=== PATIENT | female | born 1935 | race Asian ===

== ENCOUNTER → 2016-09-11 | Outpatient (CLI) | payer MEDICARE, OTHER ==
[~2016-09-11] MED LIST: AMLO-511 PO; ATOR10TA84 PO; CARV6.2534 PO; DOCU-119 PO
[2016-09-11 15:09] LABS: APPEARANCE,URINE CLEAR (CLEAR); GLUCOSE, URINE (UA) NEGATIVE (NEGATIVE); KETONES,URINE NEGATIVE (NEGATIVE); LEUKOCYTE ESTERASE ,URINE SMALL (NEGATIVE); OCCULT BLOOD,URINE NEGATIVE (NEGATIVE); PH,URINE 5.5 (5.0-8.0); PROTEIN,URINE NEGATIVE (NEGATIVE)
[2016-09-11 15:12] LABS: ADD UA MICROSCOPIC YES
[2016-09-11 15:24] LABS: HEMOGLOBIN 9.5 g/dL (12.0-16.0); RBC,URINE 0-2 /HPF (0-2)
[2016-09-11 15:25] LABS: RENAL EPITHELIAL CELLS,URINE Few /LPF (None Seen); SQUAMOUS EPITHELIAL CELL,UR Few /LPF (None Seen)
[2016-09-11 15:41] LABS: CALCIUM, TOTAL 8.6 mg/dL (8.8-10.5); CREATININE 2.7 mg/dL (0.60-1.30); POTASSIUM 4.5 mmol/L (3.5-5.1)
== END | disposition home or self-care (01) ==
LOC: LABPV 09:48
PROVIDERS: ATTEND Internal Medicine Nephrology
DX: I12.9 Hypertensive chronic kidney disease with stage 1 through stage 4 chronic kidney disease, or unspecified chronic kidney disease (principal); N18.4 Chronic kidney disease, stage 4 (severe); E78.5 Hyperlipidemia, unspecified; R80.9 Proteinuria, unspecified
CPT/HCPCS: 81050; 82306; 82575; 82607; 82728; 82746; 82784; 83540; 83550; 83970; 84100; 84155; 84156; 84165; 84166; 84300; 84466; 85014; 85018; 86334; 86335; 87086

== ENCOUNTER → 2016-11-16 | Outpatient (CLI) | payer MEDICARE, OTHER ==
[~2016-11-16] MED LIST changes: +ACET-2247 PO; +ALLO100T PO; +ASPI-1093 PO; +ASPI-556 PO; +BISA10S PR; +CLOT15C TP; +COLC0.6T69 PO; +DRON2.5C PO; +EPOE10I SQ; +FE PR; +HYDR-3965 PO; +ISOS10TA8 PO; +LEVO500 PO; +LORA0.5T2 IM; +LORA0.5T2 PO; +MEGE400O4 PO; +MIRT15 PO; +MOM30 PO; +MULT-248 PO; +MULT-68 PO; +NYST30CR9 TP; +OLME40 PO; +PANT40TA25 PO; +TELM1TAB4 PO; +TELM20 PO; +[UNRECOGNIZED DRUG - CODE]; +[UNRECOGNIZED DRUG - CODE] SQ
[2016-11-16 12:22] LABS: HEMATOCRIT 30.9 % (36-46); HEMOGLOBIN 10.2 g/dL (12.0-16.0)
[2016-11-16 12:38] LABS: ALBUMIN 3.5 g/dL (3.4-5.0); BILIRUBIN,TOTAL 0.3 mg/dL (0.1-1.0); CALCIUM, TOTAL 8.7 mg/dL (8.8-10.5); CHOL/HDL RATIO 3.4 (3.9-5.7); CREATININE 3.26 mg/dL (0.60-1.30); POTASSIUM 3.4 mmol/L (3.5-5.1); TOTAL PROTEIN, SERUM 7.7 g/dL (6.4-8.2)
== END | disposition home or self-care (01) ==
LOC: LABPV 10:13
PROVIDERS: ATTEND Internal Medicine Nephrology
DX: I12.9 Hypertensive chronic kidney disease with stage 1 through stage 4 chronic kidney disease, or unspecified chronic kidney disease (principal); N18.4 Chronic kidney disease, stage 4 (severe)
CPT/HCPCS: 85014; 85018

== ENCOUNTER → 2016-12-16 | Outpatient (CLI) | payer MEDICARE, OTHER ==
[~2016-12-16] MED LIST changes: -ACET-2247 PO; -ALLO100T PO; -ASPI-1093 PO; -ASPI-556 PO; -BISA10S PR; -CLOT15C TP; -COLC0.6T69 PO; -DRON2.5C PO; -EPOE10I SQ; -FE PR; -HYDR-3965 PO; -ISOS10TA8 PO; -LEVO500 PO; -LORA0.5T2 IM; -LORA0.5T2 PO; -MEGE400O4 PO; -MIRT15 PO; -MOM30 PO; -MULT-248 PO; -MULT-68 PO; -NYST30CR9 TP; -OLME40 PO; -PANT40TA25 PO; -TELM1TAB4 PO; -TELM20 PO; -[UNRECOGNIZED DRUG - CODE]; -[UNRECOGNIZED DRUG - CODE] SQ
[2016-12-16 16:22] LABS: HEMATOCRIT 31.7 % (36-46); HEMOGLOBIN 10.3 g/dL (12.0-16.0)
[2016-12-16 16:29] LABS: CALCIUM, TOTAL 9.2 mg/dL (8.8-10.5); CREATININE 2.34 mg/dL (0.60-1.30)
[2016-12-16 16:50] LABS: HEMOGLOBIN A1C 5.8 % (4.5-6.2)
== END | disposition home or self-care (01) ==
LOC: LABPV 14:25
PROVIDERS: ATTEND Internal Medicine Nephrology
DX: I12.9 Hypertensive chronic kidney disease with stage 1 through stage 4 chronic kidney disease, or unspecified chronic kidney disease (principal); N18.4 Chronic kidney disease, stage 4 (severe); R80.9 Proteinuria, unspecified; E78.5 Hyperlipidemia, unspecified; Z79.899 Other long term (current) drug therapy
CPT/HCPCS: 83036; 85014; 85018

== ENCOUNTER → 2017-02-22 | Outpatient (CLI) | payer MEDICARE, OTHER ==
[2017-02-22 15:07] LABS: HEMATOCRIT 32.5 % (36-46); HEMOGLOBIN 10.7 g/dL (12.0-16.0)
[2017-02-22 15:15] LABS: CALCIUM, TOTAL 8.6 mg/dL (8.8-10.5); CREATININE 2.44 mg/dL (0.60-1.30); POTASSIUM 3.5 mmol/L (3.5-5.1)
== END | disposition home or self-care (01) ==
LOC: LABPV 13:36
PROVIDERS: ATTEND Internal Medicine Nephrology
DX: I12.9 Hypertensive chronic kidney disease with stage 1 through stage 4 chronic kidney disease, or unspecified chronic kidney disease (principal); N18.4 Chronic kidney disease, stage 4 (severe); R80.9 Proteinuria, unspecified; E78.5 Hyperlipidemia, unspecified
CPT/HCPCS: 82306; 82570; 84156; 85014; 85018

== ENCOUNTER → 2017-08-12 | Outpatient (CLI) | payer MEDICARE, OTHER ==
[2017-08-12 15:28] LABS: HEMATOCRIT 32.2 % (36-46); HEMOGLOBIN 10.7 g/dL (12.0-16.0)
[2017-08-12 15:34] LABS: CREATININE,URINE RANDOM 104.2 mg/dL (30.0-125.0)
[2017-08-12 15:37] LABS: CREATININE 2.57 mg/dL (0.60-1.30); POTASSIUM 4.6 mmol/L (3.5-5.1)
== END | disposition home or self-care (01) ==
LOC: LABPV 11:22
PROVIDERS: ATTEND Internal Medicine Nephrology
DX: N18.4 Chronic kidney disease, stage 4 (severe) (principal); E78.4 Other hyperlipidemia; R80.9 Proteinuria, unspecified
CPT/HCPCS: 82570; 84156; 85014; 85018

== ENCOUNTER → 2018-01-05 | Outpatient (CLI) | payer MEDICARE, OTHER ==
[2018-01-05 11:48] LABS: HEMATOCRIT 31.4 % (36-46); HEMOGLOBIN 10.7 g/dL (12.0-16.0)
[2018-01-05 12:05] LABS: CALCIUM, TOTAL 9.1 mg/dL (8.8-10.5); CREATININE 2.85 mg/dL (0.60-1.30); POTASSIUM 4.2 mmol/L (3.5-5.1)
[2018-01-06 13:41] LABS: APPEARANCE,URINE CLEAR (CLEAR); BILIRUBIN,URINE NEGATIVE (NEGATIVE); GLUCOSE, URINE (UA) NEGATIVE (NEGATIVE); KETONES,URINE NEGATIVE (NEGATIVE); LEUKOCYTE ESTERASE ,URINE NEGATIVE (NEGATIVE); NITRATE,URINE NEGATIVE (NEGATIVE); OCCULT BLOOD,URINE NEGATIVE (NEGATIVE); PROTEIN,URINE NEGATIVE (NEGATIVE); UROBILINOGEN,URINE 0.2 mg/dL (<=1.0)
== END | disposition home or self-care (01) ==
LOC: LABPV 09:42
PROVIDERS: ATTEND Internal Medicine Nephrology
DX: I12.9 Hypertensive chronic kidney disease with stage 1 through stage 4 chronic kidney disease, or unspecified chronic kidney disease (principal); N18.4 Chronic kidney disease, stage 4 (severe); J45.909 Unspecified asthma, uncomplicated; R80.9 Proteinuria, unspecified
CPT/HCPCS: 85014; 85018

== ENCOUNTER → 2018-03-22 | Outpatient (CLI) | payer MEDICARE, OTHER ==
[2018-03-22 14:19] LABS: HEMATOCRIT 31.5 % (36-46); HEMOGLOBIN 10.5 g/dL (12.0-16.0)
[2018-03-22 14:38] LABS: CHOL/HDL RATIO 2.9 (3.9-5.7); CREATININE 2.49 mg/dL (0.60-1.30); PHOSPHORUS 3.9 mg/dL (2.5-4.9)
[2018-03-22 14:46] LABS: CREATININE,URINE RANDOM 115.7 mg/dL (30.0-125.0)
== END | disposition home or self-care (01) ==
LOC: LABPV 11:49
PROVIDERS: ATTEND Internal Medicine Nephrology
DX: I12.9 Hypertensive chronic kidney disease with stage 1 through stage 4 chronic kidney disease, or unspecified chronic kidney disease (principal); N18.4 Chronic kidney disease, stage 4 (severe); R80.9 Proteinuria, unspecified; E78.5 Hyperlipidemia, unspecified; E55.9 Vitamin D deficiency, unspecified; R79.89 Other specified abnormal findings of blood chemistry
CPT/HCPCS: 82306; 82570; 83970; 84100; 84156; 85014; 85018

== ENCOUNTER 2018-05-05 16:30 | Emergency (ER) | payer MEDICARE, OTHER ==
[~2018-05-05] VITALS: Ht 152.4 cm; Wt 8.2 kg
[2018-05-05 20:15] LABS: BASOPHILS % (AUTO) 0.8 % (0.0-2.0); EOSINOPHILS % (AUTO) 2.1 % (1.0-6.0); HEMATOCRIT 32.8 % (36-46); LYMPHOCYTES # (AUTO) 1.1 K/uL (1.0-4.8); LYMPHOCYTES % (AUTO) 20.8 % (22.0-44.0); MEAN CORPUSCULAR HEMOGLOBIN 30.1 pg (26.0-34.0); MEAN CORPUSCULAR HGB CONC 33.7 G/dL (31.0-37.0); MEAN CORPUSCULAR VOLUME 89 fL (80-100); MONOCYTES # (AUTO) 0.4 K/uL (0.1-1.0); MONOCYTES % (AUTO) 7.2 % (2.0-9.0); NEUTROPHILS # (AUTO) 3.6 K/uL (1.8-7.7); NEUTROPHILS % (AUTO) 69.1 % (40.0-70.0); PLATELET COUNT (AUTO) 128 K/uL (150-450); RED BLOOD CELL COUNT(AUTO) 3.67 MIL/uL (4.00-5.20)
[2018-05-05 20:27] LABS: CALCIUM, TOTAL 8.7 mg/dL (8.8-10.5); CREATININE 2.15 mg/dL (0.60-1.30); POTASSIUM 4.7 mmol/L (3.5-5.1)
[2018-05-05 20:39] LABS: ALBUMIN 3.7 g/dL (3.4-5.0); BILIRUBIN,TOTAL 0.4 mg/dL (0.1-1.0); C-REACTIVE PROTEIN QUANT 0.1 mg/dL (0.00-0.30); TOTAL PROTEIN, SERUM 7.6 g/dL (6.4-8.2)
[2018-05-05 21:06] VITALS: BP 151/72
[2018-05-05 21:26] LABS: ERYTHROCYTE SEDIMENTATION RATE 60 MM/HR (0-20)
== END 2018-05-05 21:35 | disposition home or self-care (01) ==
LOC: EMS 16:32
DX: R21 Rash and other nonspecific skin eruption (principal); I10 Essential (primary) hypertension
CPT/HCPCS: 85651; 86140

== ENCOUNTER → 2018-06-01 | Outpatient (CLI) | payer MEDICARE, OTHER ==
[2018-06-01 13:04] LABS: HEMATOCRIT 34.3 % (36-46); HEMOGLOBIN 11.5 g/dL (12.0-16.0)
[2018-06-01 13:25] LABS: ALBUMIN 3.9 g/dL (3.4-5.0); BILIRUBIN,TOTAL 0.5 mg/dL (0.1-1.0); CREATININE 2.45 mg/dL (0.60-1.30); POTASSIUM 4.3 mmol/L (3.5-5.1); TOTAL PROTEIN, SERUM 8.1 g/dL (6.4-8.2)
== END | disposition home or self-care (01) ==
LOC: LABPV 12:25
PROVIDERS: ATTEND Internal Medicine Nephrology
DX: I12.9 Hypertensive chronic kidney disease with stage 1 through stage 4 chronic kidney disease, or unspecified chronic kidney disease (principal); N18.4 Chronic kidney disease, stage 4 (severe)
CPT/HCPCS: 85014; 85018

== ENCOUNTER → 2018-08-01 | Outpatient (CLI) | payer MEDICARE, OTHER ==
[2018-08-01 12:30] LABS: HEMATOCRIT 34.7 % (36-46); HEMOGLOBIN 11.5 g/dL (12.0-16.0)
[2018-08-01 12:46] LABS: % IRON SATURATION 24.5 % (22-44)
[2018-08-01 12:54] LABS: ALBUMIN 4.2 g/dL (3.4-5.0); BILIRUBIN,TOTAL 0.4 mg/dL (0.1-1.0); CALCIUM, TOTAL 9.8 mg/dL (8.8-10.5); CREATININE 2.61 mg/dL (0.60-1.30); TOTAL PROTEIN, SERUM 8.2 g/dL (6.4-8.2)
[2018-08-02 09:56] LABS: CREATININE,URINE RANDOM 54.4 mg/dL (30.0-125.0)
== END | disposition home or self-care (01) ==
LOC: LABPV 10:45
PROVIDERS: ATTEND Internal Medicine Nephrology
DX: E55.9 Vitamin D deficiency, unspecified (principal); D63.1 Anemia in chronic kidney disease; I12.9 Hypertensive chronic kidney disease with stage 1 through stage 4 chronic kidney disease, or unspecified chronic kidney disease; N18.4 Chronic kidney disease, stage 4 (severe)
CPT/HCPCS: 82306; 82570; 83540; 83550; 84156; 85014; 85018

== ENCOUNTER → 2018-10-04 | Outpatient (CLI) | payer MEDICARE, OTHER ==
[2018-10-04 12:33] LABS: HEMATOCRIT 33.1 % (36-46); HEMOGLOBIN 11.2 g/dL (12.0-16.0)
[2018-10-04 12:37] LABS: CALCIUM, TOTAL 9.2 mg/dL (8.8-10.5); CREATININE 2.72 mg/dL (0.60-1.30); PHOSPHORUS 3.8 mg/dL (2.5-4.9); POTASSIUM 4.1 mmol/L (3.5-5.1)
== END | disposition home or self-care (01) ==
LOC: LABPV 11:15
PROVIDERS: ATTEND Internal Medicine Nephrology
DX: I12.9 Hypertensive chronic kidney disease with stage 1 through stage 4 chronic kidney disease, or unspecified chronic kidney disease (principal); N18.4 Chronic kidney disease, stage 4 (severe); R80.9 Proteinuria, unspecified; D63.1 Anemia in chronic kidney disease; I25.10 Atherosclerotic heart disease of native coronary artery without angina pectoris; E78.5 Hyperlipidemia, unspecified
CPT/HCPCS: 83970; 84100; 84156; 85014; 85018

== ENCOUNTER 2018-12-21 11:32 | Emergency (ER) | payer MEDICARE, OTHER ==
[~2018-12-21] VITALS: Ht 147.3 cm; Wt 68.2 kg
[~2018-12-21 11:32] MED LIST changes: -AMLO-511 PO; +AMLO5TAB9 PO
[2018-12-21] MEDS ORDERED: PERTUSS(ACELL),DIPH,TET VAC/PF 0.5 ML VIAL IM ONE (12:30)
[2018-12-21 14:08] VITALS: BP 138/70
== END 2018-12-21 14:15 | disposition home or self-care (01) ==
LOC: EMS 11:32
DX: S01.81XA Laceration without foreign body of other part of head, initial encounter (principal); I12.9 Hypertensive chronic kidney disease with stage 1 through stage 4 chronic kidney disease, or unspecified chronic kidney disease; N18.9 Chronic kidney disease, unspecified; M19.90 Unspecified osteoarthritis, unspecified site; Z90.710 Acquired absence of both cervix and uterus; Z79.899 Other long term (current) drug therapy; W22.8XXA Striking against or struck by other objects, initial encounter; Y93.89 Activity, other specified; Y92.89 Other specified places as the place of occurrence of the external cause; Y99.8 Other external cause status
CPT/HCPCS: 12011; 70450; 72125; 90471; 90715

== ENCOUNTER → 2019-01-05 | Outpatient (CLI) | payer MEDICARE, OTHER ==
[2019-01-05 10:04] LABS: CALCIUM, TOTAL 9.4 mg/dL (8.8-10.5); CHOL/HDL RATIO 2.5 (3.9-5.7); CREATININE 2.98 mg/dL (0.60-1.30); POTASSIUM 3.7 mmol/L (3.5-5.1)
[2019-01-05 12:05] LABS: PROTEIN,URINE RANDOM 119 mg/dL (0-11.9)
[2019-01-05 12:32] LABS: APPEARANCE,URINE CLEAR (CLEAR); BILIRUBIN,URINE NEGATIVE (NEGATIVE); GLUCOSE, URINE (UA) NEGATIVE (NEGATIVE); KETONES,URINE NEGATIVE (NEGATIVE); LEUKOCYTE ESTERASE ,URINE TRACE (NEGATIVE); NITRATE,URINE NEGATIVE (NEGATIVE); OCCULT BLOOD,URINE TRACE (NEGATIVE); PH,URINE 5.5 (5.0-8.0); PROTEIN,URINE SEE CONFIRM (NEGATIVE); UROBILINOGEN,URINE 0.2 mg/dL (<=1.0)
[2019-01-05 12:45] LABS: SULFOSALICYLIC ACID,URINE 1+ (Negative)
[2019-01-05 12:46] LABS: BACTERIA,URINE None Seen /HPF (None Seen); RBC,URINE None Seen /HPF (0-2); SQUAMOUS EPITHELIAL CELL,UR Few /LPF (None Seen)
== END | disposition home or self-care (01) ==
LOC: LABPV 08:41
PROVIDERS: ATTEND Internal Medicine Nephrology
DX: I13.0 Hypertensive heart and chronic kidney disease with heart failure and stage 1 through stage 4 chronic kidney disease, or unspecified chronic kidney disease (principal); N18.4 Chronic kidney disease, stage 4 (severe); I50.9 Heart failure, unspecified; E78.5 Hyperlipidemia, unspecified; E55.9 Vitamin D deficiency, unspecified; R80.9 Proteinuria, unspecified
CPT/HCPCS: 82306; 82570; 84156

== ENCOUNTER 2019-04-21 15:50 | Emergency (ER) | payer MEDICARE, OTHER ==
[~2019-04-21] VITALS: Ht 144.8 cm; Wt 54.5 kg
[2019-04-21] MEDS ORDERED: PROZ10 PO (16:01)
[2019-04-21 17:20] VITALS: BP 121/76
== END 2019-04-21 17:44 | disposition home or self-care (01) ==
LOC: EMS 15:52
DX: L25.0 Unspecified contact dermatitis due to cosmetics (principal); I10 Essential (primary) hypertension; M19.90 Unspecified osteoarthritis, unspecified site; Z90.710 Acquired absence of both cervix and uterus; Z98.890 Other specified postprocedural states; Z79.899 Other long term (current) drug therapy

== ENCOUNTER → 2019-05-30 | Outpatient (CLI) | payer MEDICARE, OTHER ==
[~2019-05-30] MED LIST changes: +ASPI-728 PO; +CHOL100018 PO; +CIPR250S4 PO; +FERR-89 PO; +PROZ10 PO
[2019-05-30 12:09] LABS: HEMOGLOBIN 10.8 g/dL (12.0-16.0)
[2019-05-30 12:37] LABS: APPEARANCE,URINE CLEAR (CLEAR); BILIRUBIN,URINE NEGATIVE (NEGATIVE); GLUCOSE, URINE (UA) NEGATIVE (NEGATIVE); KETONES,URINE NEGATIVE (NEGATIVE); LEUKOCYTE ESTERASE ,URINE NEGATIVE (NEGATIVE); NITRATE,URINE NEGATIVE (NEGATIVE); OCCULT BLOOD,URINE NEGATIVE (NEGATIVE); PH,URINE 5.5 (5.0-8.0); PROTEIN,URINE SEE CONFIRM (NEGATIVE); UROBILINOGEN,URINE 0.2 mg/dL (<=1.0)
[2019-05-30 12:52] LABS: CALCIUM, TOTAL 9.1 mg/dL (8.8-10.5); CREATININE 2.82 mg/dL (0.60-1.30); POTASSIUM 4.1 mmol/L (3.5-5.1)
[2019-05-30 12:58] LABS: SULFOSALICYLIC ACID,URINE 2+ (Negative)
[2019-05-30 12:59] LABS: BACTERIA,URINE None Seen /HPF (None Seen); RBC,URINE None Seen /HPF (0-2); SQUAMOUS EPITHELIAL CELL,UR Few /LPF (None Seen); WBC,URINE None Seen /HPF (0-5)
== END | disposition home or self-care (01) ==
LOC: LABPV 10:00
PROVIDERS: ATTEND Internal Medicine Nephrology
DX: I12.9 Hypertensive chronic kidney disease with stage 1 through stage 4 chronic kidney disease, or unspecified chronic kidney disease (principal); N18.9 Chronic kidney disease, unspecified; D63.1 Anemia in chronic kidney disease
CPT/HCPCS: 85014; 85018

== ENCOUNTER 2019-06-27 17:34 | Inpatient (IN) | payer MEDICARE, OTHER ==
[~2019-06-27] VITALS: Ht 149.9 cm; Wt 58.8 kg
[~2019-06-27 17:34] MED LIST changes: -ASPI-728 PO; -CHOL100018 PO; -CIPR250S4 PO; -FERR-89 PO
[2019-06-27 18:05] LABS: EOSINOPHILS % (AUTO) 2.2 % (1.0-6.0); HEMATOCRIT 31.8 % (36-46); HEMOGLOBIN 10.4 g/dL (12.0-16.0); LYMPHOCYTES # (AUTO) 0.9 K/uL (1.0-4.8); LYMPHOCYTES % (AUTO) 19.7 % (22.0-44.0); MEAN CORPUSCULAR HEMOGLOBIN 28.4 pg (26.0-34.0); MEAN CORPUSCULAR HGB CONC 32.7 G/dL (31.0-37.0); MEAN CORPUSCULAR VOLUME 87 fL (80-100); MONOCYTES # (AUTO) 0.3 K/uL (0.1-1.0); MONOCYTES % (AUTO) 6.2 % (2.0-9.0); NEUTROPHILS # (AUTO) 3.2 K/uL (1.8-7.7); NEUTROPHILS % (AUTO) 70.9 % (40.0-70.0); PLATELET COUNT (AUTO) 137 K/uL (150-450); RED BLOOD CELL COUNT(AUTO) 3.66 MIL/uL (4.00-5.20); RED CELL DISTRIBUTION WIDTH 14.5 % (11.5-14.5)
[2019-06-27 18:17] LABS: CALCIUM, TOTAL 8.6 mg/dL (8.8-10.5); CREATININE 2.72 mg/dL (0.60-1.30)
[2019-06-27 18:23] LABS: ALBUMIN 3.8 g/dL (3.4-5.0); BILIRUBIN,TOTAL 0.4 mg/dL (0.1-1.0); TOTAL PROTEIN, SERUM 7.6 g/dL (6.4-8.2)
[2019-06-27] MEDS ORDERED: ASPI-728 PO (22:04)
[2019-06-27] MEDS ORDERED: CHOL100018 PO (22:04)
[2019-06-27] MEDS ORDERED: FERR-89 PO (22:04)
[2019-06-27] MEDS ORDERED: 0.9% SODIUM CHLORIDE 10 ML SYRINGE IVP PRN ×2 (23:00→23:45)
[2019-06-27] MEDS ORDERED: ACETAMINOPHEN 325 MG TABLET PO PRN ×2 (23:00→23:45)
[2019-06-27] MEDS ORDERED: ONDANSETRON HCL 4 MG/2 ML VIAL IVP PRN ×2 (23:00→23:45)
[2019-06-27] MEDS ORDERED: ZOLPIDEM TARTRATE 5 MG TABLET PO PRN (23:45)
[2019-06-27] MEDS ORDERED: POTASSIUM CHLORIDE 20 MEQ ER TABLET PO PRN (23:45)
[2019-06-27] MEDS: DOCUSATE SODIUM 100 MG CAPSULE PO SCH (23:45)
[2019-06-27] MEDS ORDERED: DEXTROSE 50%-WATER 25 GM/50 ML SYRINGE IVP PRN (23:45)
[2019-06-27] MEDS ORDERED: MAGNESIUM SULFATE 4 GM/WATER 100 ML IV PRN (23:45)
[2019-06-27] MEDS ORDERED: MAGNESIUM OXIDE 400 MG TABLET PO PRN (23:45)
[2019-06-27] MEDS ORDERED: MAGNESIUM SULFATE 2 GM/WATER 50 ML IV PRN (23:45)
[2019-06-27] MEDS ORDERED: POTASSIUM CHL 10 MEQ/WATER 50 ML IV PRN (23:45)
[2019-06-27] MEDS ORDERED: INSULIN LISPRO 100 UNITS/ML SQ PRN (23:45)
[2019-06-28] VITALS (7 sets, daily range): BP systolic 130–160; BP diastolic 59–78
[2019-06-28] MEDS: CARVEDILOL 6.25 MG TABLET PO SCH ×3 (01:19→20:39)
[2019-06-28] MEDS: ATORVASTATIN CALCIUM 10 MG TABLET PO SCH ×2 (01:19→20:39)
[2019-06-28 05:17] LABS: GLUCOMETER DEV NAME(LOC) 5N.1; GLUCOSE,POINT OF CARE 89 MG/DL (70-110)
[2019-06-28 06:39] LABS: BASOPHILS % (AUTO) 0.8 % (0.0-2.0); EOSINOPHILS % (AUTO) 2.1 % (1.0-6.0); HEMATOCRIT 29.2 % (36-46); HEMOGLOBIN 9.8 g/dL (12.0-16.0); LYMPHOCYTES % (AUTO) 21.5 % (22.0-44.0); MEAN CORPUSCULAR HEMOGLOBIN 28.9 pg (26.0-34.0); MEAN CORPUSCULAR HGB CONC 33.5 G/dL (31.0-37.0); MEAN CORPUSCULAR VOLUME 86 fL (80-100); MONOCYTES # (AUTO) 0.4 K/uL (0.1-1.0); MONOCYTES % (AUTO) 7.5 % (2.0-9.0); NEUTROPHILS # (AUTO) 3.2 K/uL (1.8-7.7); NEUTROPHILS % (AUTO) 68.1 % (40.0-70.0); PLATELET COUNT (AUTO) 124 K/uL (150-450); RED BLOOD CELL COUNT(AUTO) 3.38 MIL/uL (4.00-5.20); RED CELL DISTRIBUTION WIDTH 14.6 % (11.5-14.5)
[2019-06-28 07:29] LABS: ALBUMIN 3.6 g/dL (3.4-5.0); CALCIUM, TOTAL 8.9 mg/dL (8.8-10.5); CREATININE 2.69 mg/dL (0.60-1.30); MAGNESIUM 2.1 mg/dL (1.80-2.40); POTASSIUM 3.7 mmol/L (3.5-5.1)
[2019-06-28] MEDS: FERROUS SULFATE 325 MG EC TABLET PO SCH (08:25)
[2019-06-28] MEDS: PANTOPRAZOLE SODIUM 40 MG DR TABLET PO SCH (08:25)
[2019-06-28] MEDS: CHOLECALCIFEROL (VIT D3) 1,000 UNITS TABLET PO SCH (08:25)
[2019-06-28] MEDS: AmLODIPine BESYLATE 5 MG TABLET PO SCH (08:25)
[2019-06-28] MEDS: ASPIRIN 81 MG CHEWABLE TABLET PO SCH (08:25)
[2019-06-28] MEDS: DOCUSATE SODIUM 100 MG CAPSULE PO SCH ×2 (08:25→20:39)
[2019-06-28] MEDS: FLUoxetine HCL 10 MG CAPSULE PO SCH (08:25)
[2019-06-28 10:11] LABS: HEMOGLOBIN A1C 5.7 % (3.8-5.6)
[2019-06-28] MEDS ORDERED: MAGNESIUM SULFATE 2 GM/WATER 50 ML IV PRN (12:15)
[2019-06-28] MEDS ORDERED: IPRATROPIUM BROMIDE 0.5 MG/2.5 ML NEB SOLUTION NEB PRN (12:15)
[2019-06-28] MEDS ORDERED: POTASSIUM CHL 10 MEQ/WATER 50 ML IV PRN (12:15)
[2019-06-28] MEDS ORDERED: MAGNESIUM OXIDE 400 MG TABLET PO PRN (12:15)
[2019-06-28] MEDS ORDERED: MAGNESIUM SULFATE 4 GM/WATER 100 ML IV PRN (12:15)
[2019-06-28] MEDS ORDERED: POTASSIUM CHLORIDE 20 MEQ ER TABLET PO PRN (12:15)
[2019-06-28] MEDS ORDERED: ALBUTEROL SULFATE 2.5 MG/0.5 ML NEB SOLUTION NEB PRN (12:15)
[2019-06-28 12:27] LABS: GLUCOMETER DEV NAME(LOC) 5S.1; GLUCOSE,POINT OF CARE 97 MG/DL (70-110)
[2019-06-28] MEDS: AZITHROMYCIN 500 MG/NS 250 ML IV SCH (13:30)
[2019-06-28] MEDS: ALBUTEROL SULFATE 2.5 MG/0.5 ML NEB SOLUTION NEB SCH ×2 (14:00→19:35)
[2019-06-28] MEDS ORDERED: SODIUM CHLORIDE 0.9% 250 ML IV ONE (14:32)
[2019-06-28] MEDS: CefTRIAXone 1 GM/DEXTROSE 50 ML IV SCH (14:35)
[2019-06-29] MEDS: ALBUTEROL SULFATE 2.5 MG/0.5 ML NEB SOLUTION NEB SCH ×4 (02:00→19:23)
[2019-06-29 06:45] VITALS: BP 135/56
[2019-06-29 07:15] VITALS: BP 132/70
[2019-06-29] MEDS: ASPIRIN 81 MG CHEWABLE TABLET PO SCH (09:17)
[2019-06-29] MEDS: DOCUSATE SODIUM 100 MG CAPSULE PO SCH ×2 (09:17→20:35)
[2019-06-29] MEDS: CARVEDILOL 6.25 MG TABLET PO SCH ×2 (09:17→20:35)
[2019-06-29] MEDS: FERROUS SULFATE 325 MG EC TABLET PO SCH (09:17)
[2019-06-29] MEDS: AmLODIPine BESYLATE 5 MG TABLET PO SCH (09:17)
[2019-06-29] MEDS: CHOLECALCIFEROL (VIT D3) 1,000 UNITS TABLET PO SCH (09:17)
[2019-06-29] MEDS: PANTOPRAZOLE SODIUM 40 MG DR TABLET PO SCH (09:17)
[2019-06-29] MEDS: FLUoxetine HCL 10 MG CAPSULE PO SCH (09:17)
[2019-06-29 11:12] VITALS: BP 142/64
[2019-06-29] MEDS: CefTRIAXone 1 GM/DEXTROSE 50 ML IV SCH (12:07)
[2019-06-29] MEDS: AZITHROMYCIN 500 MG/NS 250 ML IV SCH (12:08)
[2019-06-29 15:25] VITALS: BP 125/59
[2019-06-29] MEDS ORDERED: 0.9% SODIUM CHLORIDE 5 ML NEB SOLUTION NEB ONE (19:14)
[2019-06-29 19:21] VITALS: BP 142/92
[2019-06-29] MEDS: ATORVASTATIN CALCIUM 10 MG TABLET PO SCH (20:35)
[2019-06-29 23:57] VITALS: BP 147/81
[2019-06-30] MEDS ORDERED: 0.9% SODIUM CHLORIDE 5 ML NEB SOLUTION NEB ONE ×2 (01:03→09:32)
[2019-06-30] MEDS: ALBUTEROL SULFATE 2.5 MG/0.5 ML NEB SOLUTION NEB SCH ×2 (01:08→09:38)
[2019-06-30 05:35] VITALS: BP 140/77
[2019-06-30 06:55] LABS: BASOPHILS % (AUTO) 0.9 % (0.0-2.0); EOSINOPHILS % (AUTO) 2.1 % (1.0-6.0); HEMATOCRIT 26.4 % (36-46); HEMOGLOBIN 8.9 g/dL (12.0-16.0); LYMPHOCYTES # (AUTO) 0.6 K/uL (1.0-4.8); LYMPHOCYTES % (AUTO) 16.7 % (22.0-44.0); MEAN CORPUSCULAR HGB CONC 33.6 G/dL (31.0-37.0); MEAN CORPUSCULAR VOLUME 86 fL (80-100); MONOCYTES # (AUTO) 0.3 K/uL (0.1-1.0); MONOCYTES % (AUTO) 8.5 % (2.0-9.0); NEUTROPHILS # (AUTO) 2.7 K/uL (1.8-7.7); NEUTROPHILS % (AUTO) 71.8 % (40.0-70.0); PLATELET COUNT (AUTO) 111 K/uL (150-450); RED BLOOD CELL COUNT(AUTO) 3.05 MIL/uL (4.00-5.20); RED CELL DISTRIBUTION WIDTH 14.6 % (11.5-14.5)
[2019-06-30 07:03] LABS: ALBUMIN 3.5 g/dL (3.4-5.0); BILIRUBIN,TOTAL 0.3 mg/dL (0.1-1.0); CREATININE 3.31 mg/dL (0.60-1.30); POTASSIUM 4.1 mmol/L (3.5-5.1); TOTAL PROTEIN, SERUM 7.1 g/dL (6.4-8.2)
[2019-06-30] MEDS: AmLODIPine BESYLATE 5 MG TABLET PO SCH (08:18)
[2019-06-30] MEDS: FLUoxetine HCL 10 MG CAPSULE PO SCH (08:19)
[2019-06-30] MEDS: CHOLECALCIFEROL (VIT D3) 1,000 UNITS TABLET PO SCH (08:19)
[2019-06-30] MEDS: PANTOPRAZOLE SODIUM 40 MG DR TABLET PO SCH (08:19)
[2019-06-30] MEDS: DOCUSATE SODIUM 100 MG CAPSULE PO SCH (08:19)
[2019-06-30] MEDS: ASPIRIN 81 MG CHEWABLE TABLET PO SCH (08:19)
[2019-06-30] MEDS: CARVEDILOL 6.25 MG TABLET PO SCH (08:19)
[2019-06-30] MEDS: FERROUS SULFATE 325 MG EC TABLET PO SCH (08:19)
[2019-06-30 10:34] VITALS: BP 152/56
[2019-06-30] MEDS ORDERED: CIPR250S4 PO (11:06)
== END 2019-06-30 12:50 | disposition home or self-care (01) | DRG 194 ==
LOC: EMS 17:34 → 5N 23:45
PROVIDERS: ADMIT Internal Medicine; ATTEND Internal Medicine
DX: J18.9 Pneumonia, unspecified organism (principal); N18.4 Chronic kidney disease, stage 4 (severe); E46 Unspecified protein-calorie malnutrition; R07.89 Other chest pain; D64.9 Anemia, unspecified; J40 Bronchitis, not specified as acute or chronic; M19.90 Unspecified osteoarthritis, unspecified site; F03.90 Unspecified dementia, unspecified severity, without behavioral disturbance, psychotic disturbance, mood disturbance, and anxiety; I12.9 Hypertensive chronic kidney disease with stage 1 through stage 4 chronic kidney disease, or unspecified chronic kidney disease; N28.9 Disorder of kidney and ureter, unspecified; E78.5 Hyperlipidemia, unspecified; Z90.710 Acquired absence of both cervix and uterus; Z82.49 Family history of ischemic heart disease and other diseases of the circulatory system; Z68.26 Body mass index [BMI] 26.0-26.9, adult; Z79.82 Long term (current) use of aspirin
CPT/HCPCS: 83036; 83735; 93005; 93306; 94640; J0456; J0696; J7050

== ENCOUNTER → 2019-07-27 | Outpatient (CLI) | payer MEDICARE, OTHER ==
[~2019-07-27] MED LIST changes: +ASPI-728 PO; +CHOL100018 PO; +CIPR250S4 PO; +FERR-89 PO
[2019-07-27 09:05] LABS: HEMATOCRIT 32.9 % (36-46); HEMOGLOBIN 10.7 g/dL (12.0-16.0)
[2019-07-27 09:24] LABS: ALBUMIN 3.9 g/dL (3.4-5.0); BILIRUBIN,TOTAL 0.4 mg/dL (0.1-1.0); CALCIUM, TOTAL 9.5 mg/dL (8.8-10.5); CREATININE 3.06 mg/dL (0.60-1.30); PHOSPHORUS 4.7 mg/dL (2.5-4.9); TOTAL PROTEIN, SERUM 7.8 g/dL (6.4-8.2)
== END | disposition home or self-care (01) ==
LOC: LABPV 07:14
PROVIDERS: ATTEND Internal Medicine Nephrology
DX: N18.4 Chronic kidney disease, stage 4 (severe) (principal); R80.9 Proteinuria, unspecified; D63.1 Anemia in chronic kidney disease
CPT/HCPCS: 82570; 83970; 84100; 84156; 85014; 85018

== ENCOUNTER 2019-09-28 19:17 | Emergency (ER) | payer MEDICARE, OTHER ==
[~2019-09-28] VITALS: Ht 157.5 cm; Wt 65.9 kg
[2019-09-28 19:22] VITALS: BP 128/57
== END 2019-09-28 21:47 | disposition left against medical advice (07) ==
LOC: EMS 19:17
DX: R05 Cough (principal); Z53.21 Procedure and treatment not carried out due to patient leaving prior to being seen by health care provider

== ENCOUNTER 2019-11-24 12:42 | Inpatient (IN) | payer MEDICARE, OTHER ==
[~2019-11-24] VITALS: Ht 162.6 cm; Wt 79.5 kg
[~2019-11-24 12:42] MED LIST changes: +AMLO-257 PO; -AMLO5TAB9 PO
[2019-11-24] MEDS: ACETAMINOPHEN 500 MG TABLET PO ONE (13:15)
[2019-11-24 14:28] LABS: BASOPHILS % (AUTO) 0.6 % (0.0-2.0); EOSINOPHILS % (AUTO) 0.4 % (1.0-6.0); HEMATOCRIT 34.1 % (36-46); HEMOGLOBIN 11.1 g/dL (12.0-16.0); LYMPHOCYTES # (AUTO) 0.5 K/uL (1.0-4.8); LYMPHOCYTES % (AUTO) 7.6 % (22.0-44.0); MEAN CORPUSCULAR HEMOGLOBIN 28.4 pg (26.0-34.0); MEAN CORPUSCULAR HGB CONC 32.6 G/dL (31.0-37.0); MEAN CORPUSCULAR VOLUME 87 fL (80-100); MONOCYTES # (AUTO) 0.6 K/uL (0.1-1.0); MONOCYTES % (AUTO) 9.9 % (2.0-9.0); NEUTROPHILS % (AUTO) 81.5 % (40.0-70.0); PLATELET COUNT (AUTO) 144 K/uL (150-450); RED BLOOD CELL COUNT(AUTO) 3.91 MIL/uL (4.00-5.20); RED CELL DISTRIBUTION WIDTH 15.2 % (11.5-14.5)
[2019-11-24 15:02] LABS: CALCIUM, TOTAL 9.5 mg/dL (8.8-10.5); CREATININE 3.41 mg/dL (0.60-1.30); POTASSIUM 4.1 mmol/L (3.5-5.1)
[2019-11-24 15:12] LABS: LACTIC ACID 0.6 mmol/L (0.4-2.0)
[2019-11-24 15:26] LABS: ALBUMIN 3.9 g/dL (3.4-5.0); BILIRUBIN,TOTAL 0.6 mg/dL (0.1-1.0); MAGNESIUM 2.6 mg/dL (1.80-2.40); TOTAL PROTEIN, SERUM 8.1 g/dL (6.4-8.2)
[2019-11-24] MEDS ORDERED: CeFAZolin 1 GM/DEXTROSE 50 ML IV ONE (17:45)
[2019-11-24 18:06] LABS: C-REACTIVE PROTEIN QUANT 14.18 mg/dL (0.00-0.30)
[2019-11-24] MEDS ORDERED: BISACODYL 10 MG RECTAL RECTAL SUPPOSITORY PR PRN (18:45)
[2019-11-24] MEDS ORDERED: ACETAMINOPHEN 325 MG TABLET PO PRN ×2 (18:45)
[2019-11-24] MEDS ORDERED: 0.9% SODIUM CHLORIDE 10 ML SYRINGE IVP PRN (18:45)
[2019-11-24] MEDS ORDERED: MAGNESIUM HYDROXIDE SUSPENSION 30 ML UDCUP PO PRN (18:45)
[2019-11-24] MEDS ORDERED: ZOLPIDEM TARTRATE 5 MG TABLET PO PRN (18:45)
[2019-11-24] MEDS ORDERED: ONDANSETRON HCL 4 MG/2 ML VIAL IVP PRN ×2 (18:45)
[2019-11-24 18:51] LABS: ERYTHROCYTE SEDIMENTATION RATE 115 MM/HR (0-20)
[2019-11-24 21:48] VITALS: BP 153/77
[2019-11-25] MEDS: DOCUSATE SODIUM 100 MG CAPSULE PO SCH ×3 (00:03→20:27)
[2019-11-25] MEDS: HEPARIN SODIUM,PORCINE 5,000 UNITS/ML VIAL SQ SCH ×3 (00:04→20:27)
[2019-11-25] MEDS: CARVEDILOL 6.25 MG TABLET PO SCH ×3 (00:04→20:27)
[2019-11-25] MEDS: HYDROCODONE/ACETAMINOPHEN 5-325 MG TABLET PO PRN ×2 (00:17→12:52)
[2019-11-25 05:45] VITALS: BP 141/70
[2019-11-25 06:47] LABS: BASOPHILS % (AUTO) 0.8 % (0.0-2.0); EOSINOPHILS % (AUTO) 0.5 % (1.0-6.0); HEMATOCRIT 29.4 % (36-46); HEMOGLOBIN 9.8 g/dL (12.0-16.0); LYMPHOCYTES # (AUTO) 0.7 K/uL (1.0-4.8); LYMPHOCYTES % (AUTO) 15.4 % (22.0-44.0); MEAN CORPUSCULAR HEMOGLOBIN 28.8 pg (26.0-34.0); MEAN CORPUSCULAR HGB CONC 33.4 G/dL (31.0-37.0); MEAN CORPUSCULAR VOLUME 86 fL (80-100); MONOCYTES # (AUTO) 0.5 K/uL (0.1-1.0); MONOCYTES % (AUTO) 10.8 % (2.0-9.0); NEUTROPHILS # (AUTO) 3.5 K/uL (1.8-7.7); NEUTROPHILS % (AUTO) 72.5 % (40.0-70.0); PLATELET COUNT (AUTO) 130 K/uL (150-450); RED BLOOD CELL COUNT(AUTO) 3.41 MIL/uL (4.00-5.20); RED CELL DISTRIBUTION WIDTH 14.5 % (11.5-14.5)
[2019-11-25 07:02] LABS: LACTIC ACID 0.4 mmol/L (0.4-2.0)
[2019-11-25 07:04] LABS: HEMOGLOBIN A1C 5.4 % (3.8-5.6)
[2019-11-25 07:37] LABS: C-REACTIVE PROTEIN QUANT 11.28 mg/dL (0.00-0.30); CALCIUM, TOTAL 8.6 mg/dL (8.8-10.5); CHOL/HDL RATIO 2.5 (3.9-5.7); CREATININE 3.7 mg/dL (0.60-1.30); FREE T4 (FREE THYROXINE) 1.3 ng/dL (0.76-1.46); MAGNESIUM 2.2 mg/dL (1.80-2.40); POTASSIUM 3.8 mmol/L (3.5-5.1); THYROID STIMULATING HORMONE 0.98 uIU/mL (0.36-3.74)
[2019-11-25 07:47] LABS: URIC ACID 8.4 mg/dL (2.6-7.2)
[2019-11-25 08:02] VITALS: BP 158/98
[2019-11-25 08:11] LABS: ERYTHROCYTE SEDIMENTATION RATE 87 MM/HR (0-20)
[2019-11-25] MEDS: CefTRIAXone 1 GM/DEXTROSE 50 ML IV SCH (08:52)
[2019-11-25] MEDS: FLUoxetine HCL 10 MG CAPSULE PO SCH (08:52)
[2019-11-25] MEDS: ASPIRIN 81 MG CHEWABLE TABLET PO SCH (08:52)
[2019-11-25] MEDS: CHOLECALCIFEROL (VIT D3) 1,000 UNITS [25 MCG] TABLET PO SCH (08:52)
[2019-11-25] MEDS: AmLODIPine BESYLATE 5 MG TABLET PO SCH (08:52)
[2019-11-25] MEDS: FERROUS SULFATE 325 MG EC TABLET PO SCH (08:52)
[2019-11-25] MEDS ORDERED: SODIUM CHLORIDE 0.9% 500 ML IV ONE (09:07)
[2019-11-25 12:00] VITALS: BP 142/76
[2019-11-25] MEDS: PredniSONE 20 MG TABLET PO SCH (12:25)
[2019-11-25 16:03] VITALS: BP 136/60
[2019-11-25 23:41] VITALS: BP 128/65
[2019-11-26 03:46] VITALS: BP 159/76
[2019-11-26 07:09] LABS: % IRON SATURATION 15.9 % (22-44)
[2019-11-26 07:10] LABS: CALCIUM, TOTAL 8.8 mg/dL (8.8-10.5); CREATININE 3.22 mg/dL (0.60-1.30); MAGNESIUM 2.5 mg/dL (1.80-2.40); PHOSPHORUS 4.3 mg/dL (2.5-4.9); POTASSIUM 4.5 mmol/L (3.5-5.1)
[2019-11-26 07:25] VITALS: BP 158/74
[2019-11-26] MEDS: FERROUS SULFATE 325 MG EC TABLET PO SCH (08:19)
[2019-11-26] MEDS: AmLODIPine BESYLATE 5 MG TABLET PO SCH (08:19)
[2019-11-26] MEDS: DOCUSATE SODIUM 100 MG CAPSULE PO SCH ×2 (08:19→20:05)
[2019-11-26] MEDS: PredniSONE 20 MG TABLET PO SCH (08:19)
[2019-11-26] MEDS: HEPARIN SODIUM,PORCINE 5,000 UNITS/ML VIAL SQ SCH ×2 (08:19→20:06)
[2019-11-26] MEDS: CefTRIAXone 1 GM/DEXTROSE 50 ML IV SCH (08:19)
[2019-11-26] MEDS: FLUoxetine HCL 10 MG CAPSULE PO SCH (08:19)
[2019-11-26] MEDS: CARVEDILOL 6.25 MG TABLET PO SCH ×2 (08:19→20:05)
[2019-11-26] MEDS: CHOLECALCIFEROL (VIT D3) 1,000 UNITS [25 MCG] TABLET PO SCH (08:19)
[2019-11-26] MEDS: ASPIRIN 81 MG CHEWABLE TABLET PO SCH (08:20)
[2019-11-26 11:06] VITALS: BP 152/82
[2019-11-26] MEDS: SOD FERRIC GLUC COMPLX/SUCROSE 125 MG in SODIUM CHLORIDE 0.9% 100 ML IV SCH (12:29)
[2019-11-26 15:04] VITALS: BP 141/62
[2019-11-26 20:15] VITALS: BP 179/84
[2019-11-26] MEDS: HYDROCODONE/ACETAMINOPHEN 5-325 MG TABLET PO PRN (22:50)
[2019-11-27 00:50] VITALS: BP 169/74
[2019-11-27 05:55] VITALS: BP 153/68
[2019-11-27 06:13] LABS: BASOPHILS % (AUTO) 0.6 % (0.0-2.0); EOSINOPHILS % (AUTO) 0.1 % (1.0-6.0); HEMATOCRIT 30.9 % (36-46); HEMOGLOBIN 9.8 g/dL (12.0-16.0); LYMPHOCYTES # (AUTO) 0.7 K/uL (1.0-4.8); LYMPHOCYTES % (AUTO) 10.7 % (22.0-44.0); MEAN CORPUSCULAR HEMOGLOBIN 27.6 pg (26.0-34.0); MEAN CORPUSCULAR HGB CONC 31.8 G/dL (31.0-37.0); MEAN CORPUSCULAR VOLUME 87 fL (80-100); MONOCYTES # (AUTO) 0.4 K/uL (0.1-1.0); MONOCYTES % (AUTO) 6.7 % (2.0-9.0); NEUTROPHILS % (AUTO) 81.9 % (40.0-70.0); PLATELET COUNT (AUTO) 163 K/uL (150-450); RED BLOOD CELL COUNT(AUTO) 3.55 MIL/uL (4.00-5.20); RED CELL DISTRIBUTION WIDTH 15.1 % (11.5-14.5)
[2019-11-27 06:32] LABS: CALCIUM, TOTAL 8.8 mg/dL (8.8-10.5); CREATININE 3.23 mg/dL (0.60-1.30); POTASSIUM 4.9 mmol/L (3.5-5.1)
[2019-11-27 07:30] VITALS: BP 161/81
[2019-11-27] MEDS: CARVEDILOL 6.25 MG TABLET PO SCH (08:39)
[2019-11-27] MEDS: CHOLECALCIFEROL (VIT D3) 1,000 UNITS [25 MCG] TABLET PO SCH (08:39)
[2019-11-27] MEDS: PredniSONE 20 MG TABLET PO SCH (08:39)
[2019-11-27] MEDS: AmLODIPine BESYLATE 5 MG TABLET PO SCH (08:39)
[2019-11-27] MEDS: FERROUS SULFATE 325 MG EC TABLET PO SCH (08:39)
[2019-11-27] MEDS: DOCUSATE SODIUM 100 MG CAPSULE PO SCH (08:39)
[2019-11-27] MEDS: FLUoxetine HCL 10 MG CAPSULE PO SCH (08:39)
[2019-11-27] MEDS: HEPARIN SODIUM,PORCINE 5,000 UNITS/ML VIAL SQ SCH (08:39)
[2019-11-27] MEDS: ASPIRIN 81 MG CHEWABLE TABLET PO SCH (08:39)
[2019-11-27] MEDS: CefTRIAXone 1 GM/DEXTROSE 50 ML IV SCH (08:40)
[2019-11-27] MEDS ORDERED: SODIUM CHLORIDE 0.9% 250 ML IV ONE (08:51)
[2019-11-27] MEDS ORDERED: EPOETIN ALFA 10,000 UNITS/ML VIAL SQ SCH (09:00)
[2019-11-27] MEDS ORDERED: PRED20 PO (09:36)
[2019-11-27] MEDS: SOD FERRIC GLUC COMPLX/SUCROSE 125 MG in SODIUM CHLORIDE 0.9% 100 ML IV SCH (10:53)
[2019-11-27 11:30] VITALS: BP 155/75
[2019-11-27 17:18] VITALS: BP 141/7
== END 2019-11-27 18:10 | disposition home or self-care (01) | DRG 683 ==
LOC: EMS 12:45 → 6N 18:43 → 6S 11-25 19:20
PROVIDERS: ADMIT Internal Medicine Geriatric Medicine; ATTEND Internal Medicine Geriatric Medicine
DX: N17.9 Acute kidney failure, unspecified (principal); L03.114 Cellulitis of left upper limb; M10.9 Gout, unspecified; I12.9 Hypertensive chronic kidney disease with stage 1 through stage 4 chronic kidney disease, or unspecified chronic kidney disease; K59.00 Constipation, unspecified; D69.6 Thrombocytopenia, unspecified; D64.9 Anemia, unspecified; F03.90 Unspecified dementia, unspecified severity, without behavioral disturbance, psychotic disturbance, mood disturbance, and anxiety; E78.5 Hyperlipidemia, unspecified; F32.9 Major depressive disorder, single episode, unspecified; N18.9 Chronic kidney disease, unspecified; D49.3 Neoplasm of unspecified behavior of breast; E21.3 Hyperparathyroidism, unspecified; E55.9 Vitamin D deficiency, unspecified; M19.90 Unspecified osteoarthritis, unspecified site; Z20.828 Contact with and (suspected) exposure to other viral communicable diseases; Z79.82 Long term (current) use of aspirin; Z79.899 Other long term (current) drug therapy; Z90.710 Acquired absence of both cervix and uterus; Z68.30 Body mass index [BMI] 30.0-30.9, adult; Z79.01 Long term (current) use of anticoagulants
CPT/HCPCS: 76770; 83036; 83540; 83550; 83605; 83735; 84100; 84439; 84443; 84550; 85651; 86140; 87040; 93005; 93971; J0690; J0696; J0885; J1644; J2916; J7040; J7050; 36415-L1; 36415-TC; 71045-TC; 80061-TC; 87635; U0003-CS

== ENCOUNTER → 2019-12-07 | Outpatient (CLI) | payer MEDICARE, OTHER ==
[~2019-12-07] MED LIST changes: -CIPR250S4 PO; +PRED20 PO
[2019-12-07 10:10] LABS: BASOPHILS % (AUTO) 1.3 % (0.0-2.0); EOSINOPHILS % (AUTO) 1.7 % (1.0-6.0); HEMATOCRIT 33.8 % (36-46); LYMPHOCYTES # (AUTO) 0.9 K/uL (1.0-4.8); MEAN CORPUSCULAR HEMOGLOBIN 28.3 pg (26.0-34.0); MEAN CORPUSCULAR HGB CONC 32.4 G/dL (31.0-37.0); MEAN CORPUSCULAR VOLUME 87 fL (80-100); MONOCYTES # (AUTO) 0.3 K/uL (0.1-1.0); MONOCYTES % (AUTO) 7.4 % (2.0-9.0); NEUTROPHILS # (AUTO) 2.6 K/uL (1.8-7.7); NEUTROPHILS % (AUTO) 66.6 % (40.0-70.0); PLATELET COUNT (AUTO) 155 K/uL (150-450); RED BLOOD CELL COUNT(AUTO) 3.87 MIL/uL (4.00-5.20); RED CELL DISTRIBUTION WIDTH 15.4 % (11.5-14.5)
[2019-12-07 10:33] LABS: HEMOGLOBIN A1C 6.1 % (3.8-5.6)
[2019-12-07 10:34] LABS: ALBUMIN 3.6 g/dL (3.4-5.0); BILIRUBIN,TOTAL 0.4 mg/dL (0.1-1.0); CHOL/HDL RATIO 3.3 (3.9-5.7); CREATININE 3.42 mg/dL (0.60-1.30); POTASSIUM 4.5 mmol/L (3.5-5.1); THYROID STIMULATING HORMONE 2.86 uIU/mL (0.36-3.74); TOTAL PROTEIN, SERUM 7.7 g/dL (6.4-8.2)
[2019-12-07 11:38] LABS: FOLATE SERUM 18.4 ng/mL (5.4-)
== END | disposition home or self-care (01) ==
LOC: LABPV 07:46
PROVIDERS: ATTEND Legal Medicine
DX: I12.9 Hypertensive chronic kidney disease with stage 1 through stage 4 chronic kidney disease, or unspecified chronic kidney disease (principal); N18.4 Chronic kidney disease, stage 4 (severe); E55.9 Vitamin D deficiency, unspecified; G93.9 Disorder of brain, unspecified; L21.9 Seborrheic dermatitis, unspecified; R73.9 Hyperglycemia, unspecified
CPT/HCPCS: 82306; 82607; 82746; 83036; 84443

== ENCOUNTER → 2020-02-19 | Outpatient (CLI) | payer MEDICARE, OTHER ==
[2020-02-19 12:17] LABS: HEMATOCRIT 28.2 % (36-46); HEMOGLOBIN 9.2 g/dL (12.0-16.0)
[2020-02-19 12:26] LABS: CALCIUM, TOTAL 9.4 mg/dL (8.8-10.5); CREATININE 3.39 mg/dL (0.60-1.30); POTASSIUM 4.2 mmol/L (3.5-5.1)
== END | disposition home or self-care (01) ==
LOC: LABPV 11:37
PROVIDERS: ATTEND Internal Medicine Nephrology
DX: N18.5 Chronic kidney disease, stage 5 (principal); D63.1 Anemia in chronic kidney disease
CPT/HCPCS: 85014; 85018

== ENCOUNTER → 2020-05-28 | Outpatient (CLI) | payer MEDICARE, OTHER ==
[2020-05-28 09:18] LABS: HEMOGLOBIN 8.6 g/dL (12.0-16.0)
[2020-05-28 09:37] LABS: CREATININE 3.86 mg/dL (0.60-1.30); PHOSPHORUS 3.8 mg/dL (2.5-4.9); POTASSIUM 4.7 mmol/L (3.5-5.1)
== END | disposition home or self-care (01) ==
LOC: LABMN 08:46
PROVIDERS: ATTEND Internal Medicine Nephrology
DX: N18.5 Chronic kidney disease, stage 5 (principal); D63.1 Anemia in chronic kidney disease
CPT/HCPCS: 83970; 84100; 85014; 85018

== ENCOUNTER → 2020-08-05 | Outpatient (CLI) | payer MEDICARE, OTHER ==
[~2020-08-05] MED LIST changes: +ASPI-1450 PO; -ASPI-728 PO; -CHOL100018 PO; +CHOL100044 PO
[2020-08-05 12:17] LABS: HEMATOCRIT 33.7 % (36-46); HEMOGLOBIN 10.5 g/dL (12.0-16.0)
[2020-08-05 12:31] LABS: ALBUMIN 3.3 g/dL (3.4-5.0); BILIRUBIN,TOTAL 0.3 mg/dL (0.1-1.0); CHOL/HDL RATIO 3.2 (3.9-5.7); CREATININE 3.47 mg/dL (0.60-1.30); TOTAL PROTEIN, SERUM 7.1 g/dL (6.4-8.2)
[2020-08-05 13:12] LABS: % IRON SATURATION 25.6 % (22-44)
== END | disposition home or self-care (01) ==
LOC: LABPV 09:36
PROVIDERS: ATTEND Internal Medicine Nephrology
DX: N18.5 Chronic kidney disease, stage 5 (principal); D63.1 Anemia in chronic kidney disease; E78.5 Hyperlipidemia, unspecified
CPT/HCPCS: 82607; 82746; 83540; 83550; 85014; 85018

== ENCOUNTER → 2021-01-20 | Outpatient (CLI) | payer MEDICARE, OTHER ==
[~2021-01-20] MED LIST changes: +CHOL-35 PO; -CHOL100044 PO; +FLUO10CA24 PO; -PROZ10 PO
[2021-01-20 12:34] LABS: HEMATOCRIT 26.3 % (36-46); HEMOGLOBIN 8.3 g/dL (12.0-16.0)
[2021-01-20 12:49] LABS: CALCIUM, TOTAL 8.7 mg/dL (8.8-10.5); CREATININE 4.33 mg/dL (0.60-1.30); POTASSIUM 4.2 mmol/L (3.5-5.1)
== END | disposition home or self-care (01) ==
LOC: LABPV 12:02
PROVIDERS: ATTEND Internal Medicine Nephrology
DX: N18.5 Chronic kidney disease, stage 5 (principal); D63.1 Anemia in chronic kidney disease
CPT/HCPCS: 80048; 83970; 85014; 85018

== ENCOUNTER → 2021-03-05 | Outpatient (CLI) | payer MEDICARE, OTHER ==
[2021-03-05 09:49] LABS: HEMATOCRIT 31.7 % (36-46); HEMOGLOBIN 10.2 g/dL (12.0-16.0)
[2021-03-05 10:01] LABS: CALCIUM, TOTAL 8.7 mg/dL (8.8-10.5); CREATININE 4.17 mg/dL (0.60-1.30); POTASSIUM 3.8 mmol/L (3.5-5.1)
[2021-03-06 10:10] LABS: APPEARANCE,URINE CLEAR (CLEAR); BILIRUBIN,URINE NEGATIVE (NEGATIVE); GLUCOSE, URINE (UA) NEGATIVE (NEGATIVE); KETONES,URINE NEGATIVE (NEGATIVE); LEUKOCYTE ESTERASE ,URINE NEGATIVE (NEGATIVE); NITRATE,URINE NEGATIVE (NEGATIVE); OCCULT BLOOD,URINE NEGATIVE (NEGATIVE); PROTEIN,URINE SEE CONFIRM (NEGATIVE); UROBILINOGEN,URINE 0.2 mg/dL (<=1.0)
[2021-03-06 10:22] LABS: BACTERIA,URINE None Seen /HPF (None Seen); RBC,URINE None Seen /HPF (0-2); SQUAMOUS EPITHELIAL CELL,UR Few /LPF (None Seen); SULFOSALICYLIC ACID,URINE 1+ (Negative); WBC,URINE None Seen /HPF (0-5)
== END | disposition home or self-care (01) ==
LOC: LABPV 08:21
PROVIDERS: ATTEND Internal Medicine Nephrology
DX: E55.9 Vitamin D deficiency, unspecified (principal); N18.5 Chronic kidney disease, stage 5; D63.1 Anemia in chronic kidney disease
CPT/HCPCS: 80048; 81001; 81002; 82306; 85014; 85018

== ENCOUNTER → 2021-04-09 | Outpatient (CLI) | payer MEDICARE, OTHER ==
[2021-04-09 12:30] LABS: HEMATOCRIT 26.8 % (36-46); HEMOGLOBIN 8.8 g/dL (12.0-16.0)
== END | disposition home or self-care (01) ==
LOC: LABPV 07:49
PROVIDERS: ATTEND Internal Medicine Nephrology
DX: N18.9 Chronic kidney disease, unspecified (principal); D63.1 Anemia in chronic kidney disease
CPT/HCPCS: 85014; 85018

== ENCOUNTER 2021-04-30 15:08 | Emergency (ER) | payer MEDICARE, OTHER ==
[~2021-04-30] VITALS: Ht 149.9 cm; Wt 61.4 kg
[2021-04-30 16:34] LABS: BASOPHILS % (AUTO) 0.5 % (0.0-2.0); EOSINOPHILS % (AUTO) 0.3 % (1.0-6.0); HEMATOCRIT 31.4 % (36-46); LYMPHOCYTES # (AUTO) 0.3 K/uL (1.0-4.8); LYMPHOCYTES % (AUTO) 3.5 % (22.0-44.0); MEAN CORPUSCULAR HEMOGLOBIN 28.5 pg (26.0-34.0); MEAN CORPUSCULAR HGB CONC 31.9 G/dL (31.0-37.0); MEAN CORPUSCULAR VOLUME 89 fL (80-100); MONOCYTES # (AUTO) 0.4 K/uL (0.1-1.0); MONOCYTES % (AUTO) 6.2 % (2.0-9.0); NEUTROPHILS # (AUTO) 6.5 K/uL (1.8-7.7); PLATELET COUNT (AUTO) 143 K/uL (150-450); RED BLOOD CELL COUNT(AUTO) 3.51 MIL/uL (4.00-5.20); RED CELL DISTRIBUTION WIDTH 15.8 % (11.5-14.5)
[2021-04-30 16:46] LABS: NEUTROPHILS % (AUTO) 89.5 % (40.0-70.0)
[2021-04-30 16:51] LABS: CALCIUM, TOTAL 9.4 mg/dL (8.8-10.5); CREATININE 3.91 mg/dL (0.60-1.30); POTASSIUM 3.9 mmol/L (3.5-5.1)
[2021-04-30 17:05] LABS: PLATELET MORPHOLOGY COMMENT LARGE PLTS PRESENT
[2021-04-30 17:30] VITALS: BP 132/74
== END 2021-04-30 18:38 | disposition home or self-care (01) ==
LOC: EMS 15:31
DX: D64.9 Anemia, unspecified (principal); I12.9 Hypertensive chronic kidney disease with stage 1 through stage 4 chronic kidney disease, or unspecified chronic kidney disease; N18.9 Chronic kidney disease, unspecified; Z90.710 Acquired absence of both cervix and uterus; Z79.82 Long term (current) use of aspirin
CPT/HCPCS: 51701; 80048; 81002; 85025; 99283

== ENCOUNTER → 2021-06-11 | Outpatient (CLI) | payer MEDICARE, OTHER ==
[2021-06-11 11:50] LABS: HEMATOCRIT 25.9 % (36-46); HEMOGLOBIN 8.6 g/dL (12.0-16.0)
[2021-06-11 12:42] LABS: ALBUMIN 3.6 g/dL (3.4-5.0); BILIRUBIN,TOTAL 0.3 mg/dL (0.1-1.0); CALCIUM, TOTAL 8.8 mg/dL (8.8-10.5); CHOL/HDL RATIO 2.3 (3.9-5.7); CREATININE 3.86 mg/dL (0.60-1.30); POTASSIUM 4.1 mmol/L (3.5-5.1); TOTAL PROTEIN, SERUM 7.3 g/dL (6.4-8.2)
== END | disposition home or self-care (01) ==
LOC: LABPV 07:53
PROVIDERS: ATTEND Internal Medicine Nephrology
DX: N18.5 Chronic kidney disease, stage 5 (principal); D63.1 Anemia in chronic kidney disease; E55.9 Vitamin D deficiency, unspecified
CPT/HCPCS: 80053; 80061; 82306; 83970; 85014; 85018

== ENCOUNTER → 2021-06-23 | Outpatient (CLI) | payer MEDICARE, OTHER ==
[2021-06-23 10:03] LABS: BASOPHILS % (AUTO) 0.9 % (0.0-2.0); EOSINOPHILS % (AUTO) 1.6 % (1.0-6.0); HEMATOCRIT 24.2 % (36-46); LYMPHOCYTES # (AUTO) 0.5 K/uL (1.0-4.8); LYMPHOCYTES % (AUTO) 14.8 % (22.0-44.0); MEAN CORPUSCULAR HEMOGLOBIN 28.8 pg (26.0-34.0); MEAN CORPUSCULAR HGB CONC 33.1 G/dL (31.0-37.0); MEAN CORPUSCULAR VOLUME 87 fL (80-100); MONOCYTES # (AUTO) 0.4 K/uL (0.1-1.0); MONOCYTES % (AUTO) 10.2 % (2.0-9.0); NEUTROPHILS # (AUTO) 2.6 K/uL (1.8-7.7); NEUTROPHILS % (AUTO) 72.5 % (40.0-70.0); PLATELET COUNT (AUTO) 146 K/uL (150-450); RED BLOOD CELL COUNT(AUTO) 2.78 MIL/uL (4.00-5.20); RED CELL DISTRIBUTION WIDTH 15.2 % (11.5-14.5)
== END | disposition home or self-care (01) ==
LOC: MSR 08:36
PROVIDERS: ATTEND Internal Medicine Nephrology
DX: N18.5 Chronic kidney disease, stage 5 (principal); I51.7 Cardiomegaly; I25.10 Atherosclerotic heart disease of native coronary artery without angina pectoris; M47.814 Spondylosis without myelopathy or radiculopathy, thoracic region; M46.04 Spinal enthesopathy, thoracic region
CPT/HCPCS: 71046; 85025; 86706; 36415-L1; 36415-TC